=== PATIENT | female | born 1995 | race Caucasian/White ===

== ENCOUNTER 2018-02-03 08:52 | Emergency (ER) | payer SELFPAY ==
[~2018-02-03] VITALS: Ht 160 cm; Wt 56.7 kg
--- NOTE | 2018-02-03 09:13 | ED GU-Female ---
General Chief Complaint: -Female Stated Complaint: BACK PAIN/ABD PAIN Source: patient, other (friend) Exam Limitations: no limitations History of Present Illness Date Seen by Provider: Feb 03, 2018 Time Seen by Provider: 09:01 Initial Comments Patient presents to the ER by private conveyance with her significant other and chief complaint for the past week she's been having dysuria, burning nausea, chills now last couple days. She is having some pain in her back she on the right side that started up a couple days ago. She's never had a urinary tract infection nor kidney stone in the past. She has no objective fever. She took some AZO yesterday but has not had any Tylenol or Motrin. Nursing reports a temperature of 100.2 Fahrenheit today. She says she does not need anything for pain right now. She is not currently sexually active having no discharge and is off of her control since she missed her last appointment for OCPs. Allergies and Home Medications Allergies Coded Allergies: No Known Drug Allergies (Unverified , 02/03/18) Home Medications No Active Prescriptions or Reported Meds Patient Home Medication List Home Medication List Reviewed: Yes Review of Systems Constitutional: chills; No diaphoresis; fever, malaise EENTM: No ear discharge, No ear pain Respiratory: No cough, No short of breath Cardiovascular: No chest pain, No edema Gastrointestinal: No abdominal pain, No constipation, No diarrhea; nausea; No vomiting Genitourinary: burning; denies discharge; dysuria, frequency, flank pain (r) : No Musculoskeletal: see HPI, back pain; No joint pain Past Vscyoug-Vocmru-Dprgtf Hx Patient Social History Alcohol Use: Occasionally Uses Recreational Drug Use: No Smoking Status: Current Everyday Smoker Type Used: Cigarettes Recent Foreign Travel: No Contact w/Someone Who Travel: No Physical Exam Vital Signs Vital Signs - First Documented 02/03/18 08:59 Temp 100.2 Pulse 122 Resp 18 B/P (MAP) 121/80 (94) Capillary Refill : Height, Weight, BMI Height: '" Weight: lbs. oz. kg; BMI Method: General Appearance: WD/WN, no apparent distress HEENT: PERRL/EOMI, pharynx normal Neck: non-tender, full range of motion Cardiovascular: normal peripheral pulses, regular rate, rhythm Respiratory: no respiratory distress, no accessory muscle use Gastrointestinal: normal bowel sounds, non tender, soft Back: normal inspection, CVA tenderness (R); No CVA tenderness (L) Neurologic/Psychiatric: alert, oriented x 3 Skin: normal color, warm/dry Progress/Results/Core Measures Suspected Sepsis SIRS Temperature: Pulse: Respiratory Rate: Blood Pressure / Mean: Results/Orders Lab Results Laboratory Tests Test 02/03/18 09:12 Range/Units Urine Color ORANGE Urine Clarity VERY CLOUDY H Urine pH 5 5-9 Urine Specific [place] 1.015 L 1.016-1.022 Urine Protein 3+ H NEGATIVE Urine Glucose (UA) NEGATIVE NEGATIVE Urine Ketones NEGATIVE NEGATIVE Urine Nitrite POSITIVE H NEGATIVE Urine Bilirubin 3+ H NEGATIVE Urine Urobilinogen 8 H NORMAL MG/DL Urine Leukocyte Esterase 3+ H NEGATIVE Urine RBC (Auto) 5+ H NEGATIVE Urine RBC NONE /HPF Urine WBC 50-100 H /HPF Urine Squamous Epithelial Cells 0-2 /HPF Urine Crystals NONE /LPF Urine Bacteria NEGATIVE /HPF Urine Casts NONE /LPF Urine Mucus NEGATIVE /LPF Urine Culture Indicated YES My Orders Orders - EBENEZER CASTILLO Ua Culture If Indicated (02/03/18 09:03) Urine Bedside (02/03/18 09:03) Urine Culture (02/03/18 09:12) Vital Signs/I&O 02/03/18 08:59 Temp 100.2 Pulse 122 Resp 18 B/P (MAP) 121/80 (94) Capillary Refill : Progress Note : Time: 09:15 Progress Note Urine is orange colored. If there is a lot of blood we'll offer her a CT looking for kidney stone however her history seems more consistent with just urinary tract infection. Her vitals are stable except for her near fever. We are going to give her an injection of Rocephin. We have offered her STD testing at this time and she has declined that she says she recently had a couple months ago. Departure Impression Primary Impression: Urinary tract infection Qualified Codes: N30.00 - Acute cystitis without hematuria Disposition: HOME, SELF-CARE Condition: Stable Departure-Patient Inst. Decision time for Depature: 09:31 Referrals: NO,LOCAL PHYSICIAN (PCP) Primary Care Physician Patient Instructions: Urinary Tract Infection, Adult (DC) Add. Discharge Instructions: Drink lots of water. 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 If your symptoms are not improving in 3- 4 days then you should re-present to a primary care doctor or urgent care doctor. All discharge instructions reviewed with patient and/or family. Voiced understanding. Scripts Cephalexin (Keflex) 500 Mg Capsule 500 MG PO BID for 5 Days, #10 CAP 0 Refills Prov: EBENEZER CASTILLO 02/03/18 EBENEZER CASTILLO Feb 03, 2018 09:13
[2018-02-03 09:19] LABS: BILIRUBIN,URINE 3+ (NEGATIVE); CLARITY,URINE VERY CLOUDY; GLUCOSE, URINE (UA) NEGATIVE (NEGATIVE); KETONES,URINE NEGATIVE (NEGATIVE); LEUKOCYTE ESTERASE ,URINE 3+ (NEGATIVE); NITRITE,URINE POSITIVE (NEGATIVE); PH,URINE 5 (5-9); PROTEIN,URINE 3+ (NEGATIVE); UROBILINOGEN,URINE 8 MG/DL (NORMAL)
[2018-02-03 09:24] LABS: BACTERIA,URINE NEGATIVE /HPF; SQUAMOUS EPITHELIAL CELL,UR 0-2 /HPF; WBC,URINE 50-100 /HPF
[2018-02-03 09:25] LABS: COLOR,URINE ORANGE
[2018-02-03] MEDS ORDERED: cefTRIAXone 1 GM (ROCEPHIN) VIAL ONE (09:30)
[2018-02-03] MEDS ORDERED: cefTRIAXone INJECTION 1,000 MG in NS (IVPB) 50 ML IV ONE (09:30)
[2018-02-03] MEDS ORDERED: LIDOCAINE PF 1% 5 ML (XYLOCAINE) AMP ONE (09:31)
[2018-02-03] MEDS ORDERED: CEPH-507 PO (09:33)
[2018-02-03 10:11] VITALS: BP 121/80
== END 2018-02-03 10:11 | disposition home or self-care (01) ==
LOC: ER 08:57
DX: N39.0 Urinary tract infection, site not specified (principal); F17.210 Nicotine dependence, cigarettes, uncomplicated
CPT/HCPCS: 81000; 84703; 87077; 87088; 87186; 96374; 99284